=== PATIENT | male | born 1970 | race African-American/Black ===

== ENCOUNTER 2023-09-26 20:27 | Emergency (ER) | payer OTHER ==
[~2023-09-26] VITALS: Ht 180.3 cm; Wt 114.0 kg
[2023-09-26 20:35] VITALS: BP 168/70; PULSE 88; RESP 14; O2SAT 98
== END 2023-09-27 01:39 | disposition home or self-care (01) ==
LOC: ER 20:27
DX: M79.641 Pain in right hand (principal); M79.642 Pain in left hand; E11.9 Type 2 diabetes mellitus without complications
CPT/HCPCS: 99283